=== PATIENT | female | born 1955 | race Hispanic/Latino ===

== ENCOUNTER → 2024-01-15 | Outpatient (CLI) | payer OTHER ==
[~2024-01-15] MED LIST: IOHEXOL-350 75 ML VIAL IV ONE; PANT20TA18 PO
== END | disposition home or self-care (01) ==
LOC: RAH 09:11
PROVIDERS: ATTEND Family Medicine
DX: K43.9 Ventral hernia without obstruction or gangrene (principal); K42.9 Umbilical hernia without obstruction or gangrene; K43.6 Other and unspecified ventral hernia with obstruction, without gangrene; K95.89 Other complications of other bariatric procedure; M47.815 Spondylosis without myelopathy or radiculopathy, thoracolumbar region; Z98.890 Other specified postprocedural states
CPT/HCPCS: 74177; Q9967